=== PATIENT | female | born 1980 | race Caucasian/White ===

== ENCOUNTER 2016-05-08 17:26 | Emergency (ER) | payer OTHER ==
[2016-05-08 17:54] VITALS: BP 127/87
[2016-05-08] MEDS ORDERED: CYCLOBENZAPRINE HCL 10 MG TABLET PO ONE (19:37)
--- NOTE | 2016-05-08 19:46 | ERNOTE ---
Lower Extremity HPI - Narrative Date of Service: 05/08/16 - General Lower Extremities Pain: hip: right Time Seen by Provider: 05/08/16 19:20 Source: patient, RN notes reviewed Exam Limitations: no limitations - Immun/Allergies/Home Medications Immunizations: IMMUNIZATION HX Immunizations Up to Date Yes History of Influenza Vaccine No Allergies/Adverse Reactions: Allergies Allergy/AdvReac Type Severity Reaction Status Date / Time No Known Allergies Allergy Verified 05/08/16 17:54 Home Medications: HOME MEDICATIONS Diazepam [Valium] 0.25 mg PO PRN PRN 06/20/12 [Last Taken Unknown] Omeprazole [Prilosec] 40 mg PO DAILY 06/20/12 [Last Taken Unknown] Ibuprofen [Motrin] 600 mg PO Q6H PRN #40 tab 01/14/16 [Last Taken Unknown] Cyclobenzaprine HCl [Flexeril] 10 mg PO TID PRN #14 tab 05/08/16 [Last Taken Unknown] - History of Present Illness Narrative: 35 y/o female ambulatory to the ED after slipping on the ice and falling on her right hip. She reports feeling like her hip needs to pop. She is able to bear weight on the extremity. She denies any prior injury to the right leg or hip. She denies any other injuries from the fall. She has not taken anything for pain. Occurred: this afternoon Method of Injury: Reports: fell Reason for Fall: Reports: slipped Loss of Consciousness: Reports: no loss of consciousness Associated Symptoms: Reports: popping sensation. Denies: unable to bear weight , snapping, weakness, sensory loss Other Injuries: Reports: none Review of Systems - Review of Systems Constitutional: Absent: recent illness, fever EYE: Present: no symptoms reported ENT: Present: no symptoms reported Respiratory: Present: no symptoms reported Cardiology: Absent: syncope, edema Gastrointestinal/Abdominal: Present: no symptoms reported Genitourinary: Absent: other - possible Musculoskeletal: Present: muscle pain, joint pain. Absent: back pain, neck pain , joint swelling Skin: Absent: lesions, lumps Neurological: Absent: headache, dizziness/light-headedness, weakness, numbness, tingling Endocrine: Present: no symptoms reported Hematologic/Lymphatic: Present: no symptoms reported Psych: Present: no symptoms reported - Patient's Past Medical History Patient History - Medical: Anxiety, GERD, Other Patient History - Cardiac/Respiratory: No pertinent hx Patient History - Cancer: No Hx of Cancer Patient History - Surgical Procedures: , EGD Patient History - Other: None LMP (females 10-50): now - Social History Living Situations: home Psych History: Hx of Anxiety, Current tx/ever been on anti-depressants or anti- anxiety meds Smoking Status: Current every day smoker Alcohol Use: none Drug Use: none - Immunizations Immunizations Up to Date: Yes History of Influenza Vaccine: No Physical Exam - Physical Exam General Appearance: Present: wd/wn, alert, no apparent distress, anxious Neck: Present: normal inspection, nontender, supple, full range of motion Respiratory: Present: no respiratory distress, normal breath sounds, no accessory muscle use, lungs clear Cardiovascular/Chest: Present: regular rate, rhythm, no murmur, normal peripheral pulses Back Exam: Present: normal inspection, normal range of motion, no vertebral tenderness Extremity Exam: Present: normal inspection, no edema, normal range of motion, pelvis stable. Absent: non-tender - mild tenderness and minor abrasion just below right buttock, extremity edema, other - no deformity, bearing weight on injured extremity well Neurological Exam: Present: alert, oriented, normal mood/affect, no motor/ sensory deficits Skin Exam: Present: normal color, warm/dry ED Progress - Vital Signs Patient's Vital Signs:: I have reviewed the patient's vital signs. Vital Signs: Vital Signs 05/08/16 17:50 Temperature 36.7 C Pulse Rate 110 H Respiratory 16 Rate Blood Pressure 127/87 O2 Sat by Pulse 96 Oximetry - Progress/Reassessment Chief Complaint: Hip Pain/Injury Progress:: Unchanged Plan - Plan Plan: Xrays deferred as patient is bearing weight and the likelihood of a fracture is very low, injury is most likely soft tissue, discussed need to f/u if symptoms are not improving over the next several days. Departure Clinical Impression: Hip pain, acute Qualifiers: Laterality: right Qualified Code(s): M25.551 - Pain in right hip - Departure Disposition: Home self-care Condition: Good Instructions: Hip Pain Additional Instructions: Ibuprofen 600 mg every 6 hours with food for pain Ice or heat to sore area Activity as tolerated Follow up with your doctor if no improvement in 1 week Referrals: Brittanie Bethea FNP [Primary Care Provider] - Prescriptions: Cyclobenzaprine HCl [Flexeril] 10 mg PO TID PRN #14 tab PRN Reason: MUSCLE SPASMS
[2016-05-08] MEDS ORDERED: CYCLOBENZAPRINE HCL 10 MG TABLET ONE (19:47)
--- OUTSIDE RECORDS SUMMARY | 2016-05-08 19:53 | XMS REPORT | Continuity of Care Document ---
:1980 Author Organization [facility] ([facility]) Address [address] [place] [address] Phone [phone] Care Team Providers Name Role Phone Timbo Lyons Primary Care Provider [phone] Source Comments This disclosure is being made pursuant to the Care Everywhere program, applicable federal and state laws, and may not contain all informaitonavailable regarding this patient.[facility] ([facility]) Active Allergies and Adverse Reactions Allergen Noted Date Severity Reactions Comments No Known Drug Allergies 07/25/2008 NO REACTION Current Medications Prescription Sig. Disp. Refills Start Date End Date Status diazepam (VALIUM) 2 mg take 2 mg by mouth Active tablet every 6 hours as needed. For dizziness omeprazole 20 mg tablet Take 20 mg by mouth Active daily. CALCIUM CARBONATE (TUMS Take 2 Tabs by mouth Active PO) as needed. ibuprofen 200 mg tablet Take 400 mg by mouth Active every 6 hours as needed. 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 Overview: 2005 emergency CS at 26weeks, live son Foot fracture 04/20/2009 Overview: Jumped out of a truck Pneumonia, organism unspecified 04/20/2009 Overview: 2007 Transfusion of, blood 04/20/2009 Overview: Post 2006 Headache disorder 04/20/2009 Overview: 10/16/[address] negative 10/23/[address] negative 11/03/2008 Head MRI negative Dizziness and giddiness 06/25/2005 Resolved Problems Problem Noted Date Resolved Date Anxiety state, unspecified 06/25/2005 04/20/2009 Unspecified essential hypertension 06/03/2005 04/20/2009 Screening for diabetes mellitus 06/02/2005 04/20/2009 Anemia, unspecified 06/02/2005 04/20/2009 Other malaise and fatigue 06/02/2005 04/20/2009 Urinary tract infection, site not specified 05/26/2005 04/20/2009 Shortness of breath 05/13/2005 04/20/2009 Social History Tobacco Use Types Packs/Day Years Used Date Current Some Day Smoker Cigarettes 17 Smokeless Tobacco: Never Used Tobacco Cessation:Ready to Quit: Yes; Counseling Given: Yes Comments:1/2 ppd for 17 years Alcohol Use Drinks/Week oz/Week Comments Yes rare Last Filed Vital Signs Vital Sign Reading Time Taken Blood Pressure 124/87 11/17/2011 1:53 PM CDT Pulse 80 11/17/2011 1:53 PM CDT Temperature 36.4 C (97.5 F) 10/17/2011 9:55 AM CDT Respiratory Rate 16 04/20/2009 8:51 AM [employer] Height 1.626 m (5' 4") 11/17/2011 1:53 PM CDT Weight 69.491 kg (153 lb 3.2 oz) 11/17/2011 1:53 PM CDT Body Mass Index 26.28 11/17/2011 1:53 PM CDT Oxygen Saturation - - Plan of Care Health Maintenance Due Date Last Done Comments Hepatitis B Vaccine (1 of 3 - Primary Series) 1980 Tdap Vaccine 1991 Lipid Disorder Screening 1998 MMR Vaccine 1998 Td Vaccine 1998 Varicella Vaccine (1 of 2 - Adult - No Evidence of 1998 Immunity) Pneumococcal Vaccine (1 of 1 - PPSV23) 1999 Cervical Cancer Screening 2010 Influenza Vaccine: Seasonal (#1) 10/29/2015 Results from Last 3 Months Not on file
== END 2016-05-08 20:45 | disposition home or self-care (01) ==
LOC: ER 17:26
DX: M25.551 Pain in right hip (principal); F17.210 Nicotine dependence, cigarettes, uncomplicated; K21.9 Gastro-esophageal reflux disease without esophagitis